=== PATIENT | female | born 1960 | race Caucasian/White ===

== ENCOUNTER 2021-03-23 08:21 | Inpatient (IN) ==
[2021-03-23] MEDS ORDERED: *HR* Heparin 10,000 UNIT/10 ML VIAL IV PRN (11:43)
[2021-03-23] MEDS ORDERED: 0.9 % Sodium Chloride 250 ML IVC PRN (11:43)
[2021-03-23] MEDS ORDERED: 0.9 % Sodium Chloride 1,000 ML PRIME SCH (11:45)
[2021-03-23] MEDS ORDERED: 0.9 % Sodium Chloride 1,000 ML ONE (11:48)
[2021-03-23 15:09] LABS: Hepatitis B Surface Antibody 154.11 mIU/mL
[2021-03-23 15:20] LABS: Hepatitis B Surface Antigen Nonreactive (Nonreactive)
[2021-03-23] MEDS ORDERED: Perflutren Lipid Microsphere 1.3 ML in 0.9 % Sodium Chloride 8.7 ML IVP PRN (15:53)
[2021-03-23] MEDS ORDERED: Cyanocobalamin (B-12) 1,000 MCG/ML VIAL SQ SCH (16:30)
[2021-03-23] MEDS: carvediloL 25 MG TABLET PO SCH (17:28)
[2021-03-23] MEDS: *HR* HYDROcodone/Acet 10/325 mg TABLET PO PRN (17:29)
[2021-03-23 17:52] LABS: Troponin I 0.03 ng/mL (< 0.04)
[2021-03-23] MEDS ORDERED: Aspirin Enteric Coated 81 MG Tablet PO SCH (18:00)
[2021-03-23 18:05] LABS: Thyroid Stimulating Hormone 0.167 mcIU/mL (0.340-5.600)
[2021-03-23] MEDS ORDERED: traZODone 50 MG TABLET PO SCH (21:00)
[2021-03-24 03:50] LABS: Basophils % 0.4 %; Eosinophils # 0.1 K/mcL (0.0-0.6); Eosinophils % 1.7 %; Hematocrit 31.4 % (35.3-44.9); Hemoglobin 10.3 g/dL (11.5-15.4); Immature Granulocytes % 0.7 % (0-4); Lymphocytes % 13.5 %; Mean Corpuscular HGB Conc 32.8 g/dL (31.6-35.5); Mean Corpuscular Hemoglobin 31.7 pg (28.0-33.3); Mean Corpuscular Volume 96.6 fL (83.0-100.0); Mean Platelet Volume 9.4 fL (9.4-12.4); Monocytes # 0.5 K/mcL (0.0-1.3); Monocytes % 7.1 %; Neutrophils # 5.4 K/mcL (1.6-8.9); Platelet Count 124 K/mcL (140-400); Red Blood Count 3.25 M/mcL (3.82-4.97); Red Cell Distribution Width 14.6 % (11.5-14.5); Segmented Neutrophils % 76.6 %; White Blood Count 7.1 K/mcL (4.3-11.1)
[2021-03-24 03:59] LABS: Calcium 8.8 mg/dL (8.6-10.3); Phosphorous 3.9 mg/dL (2.7-4.5); Potassium 3.8 mEq/L (3.5-5.1)
[2021-03-24] MEDS ORDERED: *HR* Heparin 10,000 UNIT/10 ML VIAL IV PRN ×2 (07:16→10:26)
[2021-03-24] MEDS ORDERED: 0.9 % Sodium Chloride 250 ML IVC PRN (07:16)
[2021-03-24] MEDS ORDERED: 0.9 % Sodium Chloride 1,000 ML PRIME SCH ×3 (07:30→10:26)
[2021-03-24] MEDS: carvediloL 25 MG TABLET PO SCH ×2 (07:37→17:33)
[2021-03-24] MEDS ORDERED: *HR* Glimepiride 2 MG TABLET PO SCH (08:00)
[2021-03-24] MEDS ORDERED: DilTIAZem CD (24hr) 180 MG CAP.ER.24H PO SCH (09:00)
[2021-03-24] MEDS: *HR* HYDROcodone/Acet 10/325 mg TABLET PO PRN ×2 (10:21→20:00)
[2021-03-24] MEDS ORDERED: Cyanocobalamin (B-12) 1,000 MCG/ML VIAL SQ SCH (10:26)
[2021-03-24] MEDS ORDERED: Perflutren Lipid Microsphere 1.3 ML in 0.9 % Sodium Chloride 8.7 ML IVP PRN (10:26)
[2021-03-24] MEDS ORDERED: Insulin LISPRO 300 UNITS/3 ML VIAL SUBQ SCH (11:30)
[2021-03-24] MEDS ORDERED: Dextrose Gel 15 GM/37.5 ML TUBE PO PRN ×2 (20:43)
[2021-03-24] MEDS ORDERED: *HR* Dextrose 50 % in Water (Vial) 50 ML VIAL IVP PRN (20:43)
[2021-03-24] MEDS ORDERED: D5% in Water 1,000 ML IVC PRN (20:43)
[2021-03-24] MEDS: Insulin DETEMIR 100 UNIT/ML X5UNITS SUBQ SCH (21:25)
[2021-03-24] MEDS: Insulin LISPRO 300 UNITS/3 ML VIAL SUBQ SCH (21:25)
[2021-03-25] MEDS: traZODone 50 MG TABLET PO SCH ×2 (02:29→20:11)
[2021-03-25 03:00] LABS: Hematocrit 33.2 % (35.3-44.9); Hemoglobin 11.1 g/dL (11.5-15.4); Mean Corpuscular HGB Conc 33.4 g/dL (31.6-35.5); Mean Corpuscular Hemoglobin 31.9 pg (28.0-33.3); Mean Corpuscular Volume 95.4 fL (83.0-100.0); Platelet Count 144 K/mcL (140-400); Red Blood Count 3.48 M/mcL (3.82-4.97); Red Cell Distribution Width 14.6 % (11.5-14.5); White Blood Count 10.1 K/mcL (4.3-11.1)
[2021-03-25 03:18] LABS: Calcium 8.8 mg/dL (8.6-10.3)
[2021-03-25] MEDS ORDERED: 0.9 % Sodium Chloride 250 ML IVC PRN (07:59)
[2021-03-25] MEDS ORDERED: *HR* Heparin 10,000 UNIT/10 ML VIAL IV PRN (07:59)
[2021-03-25] MEDS ORDERED: Sulfamethoxazole/Trimeth DS 1 EACH TABLET PO SCH (09:00)
[2021-03-25] MEDS: *HR* HYDROcodone/Acet 10/325 mg TABLET PO PRN ×2 (09:34→20:11)
[2021-03-25] MEDS: predniSONE 5 MG TABLET PO SCH (09:35)
[2021-03-25] MEDS: Insulin LISPRO 300 UNITS/3 ML VIAL SUBQ SCH ×3 (09:36→16:01)
[2021-03-25] MEDS: carvediloL 25 MG TABLET PO SCH ×2 (12:23→16:01)
[2021-03-25] MEDS: DilTIAZem CD (24hr) 180 MG CAP.ER.24H PO SCH (13:12)
[2021-03-25] MEDS: *HR* Heparin 5,000 UNIT/ML VIAL SQ SCH ×2 (13:12→20:12)
[2021-03-25] MEDS: Insulin DETEMIR 100 UNIT/ML X5UNITS SUBQ SCH (20:19)
[2021-03-26] MEDS: *HR* HYDROcodone/Acet 10/325 mg TABLET PO PRN (03:08)
[2021-03-26] MEDS: *HR* Heparin 5,000 UNIT/ML VIAL SQ SCH ×2 (05:59→11:58)
[2021-03-26 07:22] VITALS: BP 114/72
[2021-03-26] MEDS: Insulin LISPRO 300 UNITS/3 ML VIAL SUBQ SCH ×2 (08:34→11:58)
[2021-03-26] MEDS: DilTIAZem CD (24hr) 180 MG CAP.ER.24H PO SCH (08:38)
[2021-03-26] MEDS: carvediloL 25 MG TABLET PO SCH (08:38)
[2021-03-26] MEDS: predniSONE 5 MG TABLET PO SCH (08:38)
[2021-03-26 09:11] LABS: Hematocrit 34.5 % (35.3-44.9); Hemoglobin 11.4 g/dL (11.5-15.4); Mean Corpuscular Hemoglobin 31.4 pg (28.0-33.3); Mean Platelet Volume 9.5 fL (9.4-12.4); Platelet Count 160 K/mcL (140-400); Red Blood Count 3.63 M/mcL (3.82-4.97); Red Cell Distribution Width 14.6 % (11.5-14.5); White Blood Count 7.7 K/mcL (4.3-11.1)
[2021-03-26 09:27] LABS: Calcium 8.8 mg/dL (8.6-10.3); Potassium 3.8 mEq/L (3.5-5.1)
== END 2021-03-26 14:50 | disposition home or self-care (01) | DRG 291 ==
LOC: ICNU 10:41 → SUATTDRO 10:41 → 2ANU 03-24 11:21
PROVIDERS: ADMIT Family Medicine; ATTEND Family Medicine

== ENCOUNTER 2021-09-17 18:57 | Inpatient (IN) ==
[2021-09-17] MEDS ORDERED: Melatonin 3 MG TABLET PO PRN (23:16)
[2021-09-17] MEDS ORDERED: Ondansetron 4 MG/2 ML VIAL IVP PRN (23:16)
[2021-09-17] MEDS ORDERED: Acetaminophen 325 MG TABLET PO PRN (23:16)
[2021-09-17] MEDS ORDERED: Naloxone 0.4 MG/ML INJ IVP PRN (23:16)
[2021-09-18] MEDS: *HR* HYDROcodone/Acet 5/325 mg TABLET PO PRN ×4 (02:58→19:39)
[2021-09-18] MEDS ORDERED: Acetaminophen IV 500 MG/50 ML BAG IVPB ONE (06:00)
[2021-09-18] MEDS ORDERED: D5% in Water 1,000 ML IVC PRN (06:07)
[2021-09-18] MEDS ORDERED: *HR* Dextrose 50 % in Water (Syg) 50 ML SYRINGE IVP PRN (06:07)
[2021-09-18] MEDS ORDERED: Dextrose Gel 15 GM/37.5 ML TUBE PO PRN ×2 (06:07)
[2021-09-18 06:11] LABS: Basophils % 0.5 %; Eosinophils # 0.1 K/mcL (0.0-0.6); Eosinophils % 1.1 %; Hematocrit 25.7 % (35.3-44.9); Hemoglobin 7.8 g/dL (11.5-15.4); Immature Granulocytes % 0.3 % (0-4); Lymphocytes # 0.6 K/mcL (0.6-4.6); Lymphocytes % 8.4 %; Mean Corpuscular HGB Conc 30.4 g/dL (31.6-35.5); Mean Corpuscular Hemoglobin 32.2 pg (28.0-33.3); Mean Corpuscular Volume 106.2 fL (83.0-100.0); Mean Platelet Volume 9.9 fL (9.4-12.4); Monocytes # 0.6 K/mcL (0.0-1.3); Monocytes % 7.5 %; Neutrophils # 6.3 K/mcL (1.6-8.9); Platelet Count 112 K/mcL (140-400); Red Blood Count 2.42 M/mcL (3.82-4.97); Segmented Neutrophils % 82.2 %; White Blood Count 7.6 K/mcL (4.3-11.1)
[2021-09-18 06:39] LABS: Albumin 3.2 g/dL (3.5-5.7); Albumin/Globulin Ratio 1.3 (1.1-2.2); Bilirubin,Total 0.5 mg/dL (0.3-1.0); Calcium 8.2 mg/dL (8.6-10.3); Globulin 2.5 g/dL (2.4-3.5); Magnesium 1.9 mg/dL (1.6-2.6); Phosphorous 3.8 mg/dL (2.7-4.5); Potassium 4.9 mEq/L (3.5-5.1); Total Protein 5.7 g/dL (6.4-8.9); Troponin I 0.03 ng/mL (< 0.04)
[2021-09-18] MEDS ORDERED: 0.9 % Sodium Chloride 250 ML IVC PRN (07:54)
[2021-09-18] MEDS ORDERED: 0.9 % Sodium Chloride 1,000 ML PRIME SCH (08:00)
[2021-09-18] MEDS ORDERED: *HR* LORazepam 0.5 MG TABLET PO ONE (10:05)
[2021-09-18 11:26] LABS: INR 1.1; Prothrombin Time 11.7 Seconds (9.4-12.1)
[2021-09-18] MEDS: Insulin LISPRO 300 UNITS/3 ML VIAL SUBQ SCH ×3 (13:26→19:40)
[2021-09-18] MEDS: polyethylene glycoL 3350 17 GM POWD.PACK PO SCH (17:34)
[2021-09-18] MEDS: cefTRIAXone 1,000 MG in Water for inj. (sterile) 10 ML IVP SCH (17:36)
[2021-09-18] MEDS: *HR* Heparin 5,000 UNIT/ML VIAL SQ SCH (17:37)
[2021-09-19] MEDS: Insulin LISPRO 300 UNITS/3 ML VIAL SUBQ SCH ×7 (00:57→20:21)
[2021-09-19] MEDS: *HR* HYDROcodone/Acet 5/325 mg TABLET PO PRN ×5 (01:01→21:32)
[2021-09-19 05:25] LABS: Calcium 8.3 mg/dL (8.6-10.3); Potassium 4.2 mEq/L (3.5-5.1)
[2021-09-19] MEDS: *HR* Heparin 5,000 UNIT/ML VIAL SQ SCH ×2 (06:17→17:04)
[2021-09-19] MEDS ORDERED: carvediloL 6.25 MG TABLET PO SCH (08:00)
[2021-09-19] MEDS: Insulin DETEMIR 100 UNIT/ML X5UNITS SUBQ SCH (08:31)
[2021-09-19] MEDS: polyethylene glycoL 3350 17 GM POWD.PACK PO SCH (08:33)
[2021-09-19] MEDS: Aspirin Enteric Coated 81 MG Tablet PO SCH (08:33)
[2021-09-19] MEDS: cefTRIAXone 1,000 MG in Water for inj. (sterile) 10 ML IVP SCH (08:34)
[2021-09-19] MEDS ORDERED: 0.9 % Sodium Chloride 250 ML IVC PRN (09:22)
[2021-09-19] MEDS ORDERED: 0.9 % Sodium Chloride 1,000 ML PRIME SCH (09:30)
[2021-09-19 12:38] LABS: Iron 29 mcg/dL (50-170)
[2021-09-19] MEDS: carvediloL 6.25 MG TABLET PO SCH (17:04)
[2021-09-19] MEDS: Melatonin 3 MG TABLET PO SCH (20:20)
[2021-09-19] MEDS: traZODone 50 MG TABLET PO SCH (20:20)
[2021-09-19] MEDS ORDERED: Melatonin 3 MG TABLET PO SCH (21:00)
[2021-09-20] MEDS: *HR* Heparin 5,000 UNIT/ML VIAL SQ SCH ×2 (05:40→16:38)
[2021-09-20] MEDS: *HR* HYDROcodone/Acet 5/325 mg TABLET PO PRN ×5 (05:41→23:23)
[2021-09-20] MEDS: Insulin LISPRO 300 UNITS/3 ML VIAL SUBQ SCH ×4 (08:00→21:27)
[2021-09-20] MEDS: polyethylene glycoL 3350 17 GM POWD.PACK PO SCH (09:47)
[2021-09-20] MEDS: Aspirin Enteric Coated 81 MG Tablet PO SCH (09:47)
[2021-09-20] MEDS: cefTRIAXone 1,000 MG in Water for inj. (sterile) 10 ML IVP SCH (09:48)
[2021-09-20] MEDS: carvediloL 6.25 MG TABLET PO SCH ×2 (09:52→16:39)
[2021-09-20] MEDS: Insulin DETEMIR 100 UNIT/ML X5UNITS SUBQ SCH (09:52)
[2021-09-20 11:21] LABS: Calcium 8.5 mg/dL (8.6-10.3); Potassium 4.4 mEq/L (3.5-5.1)
[2021-09-20] MEDS: Melatonin 3 MG TABLET PO SCH (21:23)
[2021-09-20] MEDS: traZODone 50 MG TABLET PO SCH (21:25)
[2021-09-21] MEDS: *HR* Heparin 5,000 UNIT/ML VIAL SQ SCH (05:15)
[2021-09-21] MEDS: *HR* HYDROcodone/Acet 5/325 mg TABLET PO PRN ×2 (05:16→12:16)
[2021-09-21 06:16] LABS: Calcium 8.2 mg/dL (8.6-10.3); Potassium 4.8 mEq/L (3.5-5.1)
[2021-09-21] MEDS ORDERED: 0.9 % Sodium Chloride 250 ML IVC PRN (07:31)
[2021-09-21 07:47] VITALS: PULSE 87; O2SAT 95
[2021-09-21] MEDS: Aspirin Enteric Coated 81 MG Tablet PO SCH (08:57)
[2021-09-21] MEDS: cefTRIAXone 1,000 MG in Water for inj. (sterile) 10 ML IVP SCH (08:58)
[2021-09-21] MEDS: polyethylene glycoL 3350 17 GM POWD.PACK PO SCH (08:58)
[2021-09-21] MEDS: carvediloL 6.25 MG TABLET PO SCH (08:59)
[2021-09-21] MEDS: Insulin LISPRO 300 UNITS/3 ML VIAL SUBQ SCH ×2 (08:59→12:16)
[2021-09-21] MEDS ORDERED: Furosemide 40 MG TABLET PO SCH (09:00)
[2021-09-21] MEDS: Insulin DETEMIR 100 UNIT/ML X5UNITS SUBQ SCH (09:01)
[2021-09-21 15:08] VITALS: BP 149/78; TEMP 98.1
== END 2021-09-21 16:45 | disposition home health service (06) | DRG 312 ==
LOC: 2ANU → SUATTDRO 20:56
PROVIDERS: ADMIT Hospitalist; ATTEND Internal Medicine

== ENCOUNTER 2021-09-23 14:36 | Inpatient (IN) ==
[2021-09-23] MEDS ORDERED: Naloxone 0.4 MG/ML INJ IVP PRN (16:57)
[2021-09-23] MEDS ORDERED: Vancomycin 1,750 MG in 0.9 % Sodium Chloride 250 ML IVPB SCH (17:00)
[2021-09-23] MEDS ORDERED: levoFLOXacin 750 MG/150 ML 750 MG/150 ML BAG IVPB SCH (17:00)
[2021-09-23] MEDS ORDERED: Ondansetron 4 MG/2 ML VIAL ONE (17:49)
[2021-09-23] MEDS ORDERED: Vancomycin 2,000 MG/520 ML IV.SOLN IVPB ONE (18:48)
[2021-09-23] MEDS ORDERED: levoFLOXacin 750 MG/150 ML 750 MG/150 ML BAG IVPB ONE (19:00)
[2021-09-24] MEDS: Ondansetron 4 MG/2 ML VIAL IVP PRN ×2 (01:37→10:19)
[2021-09-24 08:02] LABS: Calcium 8.3 mg/dL (8.6-10.3); Potassium 4.7 mEq/L (3.5-5.1)
[2021-09-24] MEDS ORDERED: 0.9 % Sodium Chloride 250 ML IVC PRN (09:42)
[2021-09-24] MEDS ORDERED: 0.9 % Sodium Chloride 1,000 ML PRIME SCH (09:45)
[2021-09-24] MEDS ORDERED: *HR* Promethazine 25 MG/ML VIAL IM ONE (10:14)
[2021-09-24] MEDS ORDERED: Acetaminophen 325 MG TABLET PO PRN (10:33)
[2021-09-24] MEDS ORDERED: Dextrose Gel 15 GM/37.5 ML TUBE PO PRN ×2 (10:34)
[2021-09-24] MEDS ORDERED: D5% in Water 1,000 ML IVC PRN (10:34)
[2021-09-24] MEDS ORDERED: *HR* Dextrose 50 % in Water (Syg) 50 ML SYRINGE IVP PRN (10:34)
[2021-09-24] MEDS: *HR* HYDROcodone/Acet 5/325 mg TABLET PO PRN ×2 (12:43→18:48)
[2021-09-24] MEDS: Insulin LISPRO 300 UNITS/3 ML VIAL SUBQ SCH ×2 (12:43→16:55)
[2021-09-24] MEDS ORDERED: NON-FORMULARY MEDICATION 1 EACH EACH (Carvedilol [Carvedilol] 3.125 MG Tablet) PO SCH (21:00)
[2021-09-24] MEDS: Insulin DETEMIR 100 UNIT/ML X5UNITS SUBQ SCH (21:43)
[2021-09-25] MEDS: *HR* HYDROcodone/Acet 5/325 mg TABLET PO PRN ×4 (01:37→21:06)
[2021-09-25] MEDS ORDERED: 0.9 % Sodium Chloride 250 ML IVC PRN (07:25)
[2021-09-25] MEDS: Insulin LISPRO 300 UNITS/3 ML VIAL SUBQ SCH ×3 (08:34→17:44)
[2021-09-25] MEDS ORDERED: polyethylene glycoL 3350 17 GM POWD.PACK PO PRN (10:20)
[2021-09-25 15:28] LABS: Albumin 3.5 g/dL (3.5-5.7); Albumin/Globulin Ratio 1.1 (1.1-2.2); Bilirubin,Direct 0.1 mg/dL (0.0-0.2); Bilirubin,Indirect 0.5 mg/dL (0.0-1.0); Bilirubin,Total 0.6 mg/dL (0.3-1.0); Calcium 8.7 mg/dL (8.6-10.3); Globulin 3.1 g/dL (2.4-3.5); Potassium 3.4 mEq/L (3.5-5.1); Total Protein 6.6 g/dL (6.4-8.9)
[2021-09-25] MEDS: levoFLOXacin 500 MG/100 ML 500 MG/100 ML BAG IVPB SCH (17:41)
[2021-09-25] MEDS: Melatonin 3 MG TABLET PO SCH (20:12)
[2021-09-25] MEDS: Insulin DETEMIR 100 UNIT/ML X5UNITS SUBQ SCH (20:13)
[2021-09-25] MEDS: traZODone 50 MG TABLET PO SCH (20:13)
[2021-09-25] MEDS: calcium polycarbophiL 625 MG TABLET PO SCH (21:06)
[2021-09-25] MEDS: Ondansetron 4 MG/2 ML VIAL IVP PRN (22:35)
[2021-09-26] MEDS: *HR* HYDROcodone/Acet 5/325 mg TABLET PO PRN ×4 (03:10→21:58)
[2021-09-26 04:23] LABS: Basophils # 0.1 K/mcL (0.0-0.2); Basophils % 0.8 %; Eosinophils # 0.3 K/mcL (0.0-0.6); Eosinophils % 4.2 %; Hematocrit 22.2 % (35.3-44.9); Hemoglobin 7.3 g/dL (11.5-15.4); Immature Granulocytes % 0.8 % (0-4); Lymphocytes # 0.9 K/mcL (0.6-4.6); Lymphocytes % 11.7 %; Mean Corpuscular HGB Conc 32.9 g/dL (31.6-35.5); Mean Corpuscular Hemoglobin 33.5 pg (28.0-33.3); Mean Corpuscular Volume 101.8 fL (83.0-100.0); Mean Platelet Volume 9.1 fL (9.4-12.4); Monocytes # 0.7 K/mcL (0.0-1.3); Monocytes % 9.2 %; Neutrophils # 5.8 K/mcL (1.6-8.9); Platelet Count 185 K/mcL (140-400); Red Blood Count 2.18 M/mcL (3.82-4.97); Red Cell Distribution Width 13.7 % (11.5-14.5); Segmented Neutrophils % 73.3 %; White Blood Count 7.9 K/mcL (4.3-11.1)
[2021-09-26 05:04] LABS: Albumin 3.2 g/dL (3.5-5.7); Albumin/Globulin Ratio 1.2 (1.1-2.2); Bilirubin,Direct 0.1 mg/dL (0.0-0.2); Bilirubin,Indirect 0.4 mg/dL (0.0-1.0); Bilirubin,Total 0.5 mg/dL (0.3-1.0); Calcium 8.7 mg/dL (8.6-10.3); Globulin 2.6 g/dL (2.4-3.5); Potassium 4.1 mEq/L (3.5-5.1); Total Protein 5.8 g/dL (6.4-8.9)
[2021-09-26] MEDS: Aspirin Enteric Coated 81 MG Tablet PO SCH (07:49)
[2021-09-26] MEDS: calcium polycarbophiL 625 MG TABLET PO SCH ×2 (07:49→21:59)
[2021-09-26] MEDS: Insulin LISPRO 300 UNITS/3 ML VIAL SUBQ SCH ×3 (08:04→16:21)
[2021-09-26] MEDS: traZODone 50 MG TABLET PO SCH (21:58)
[2021-09-26] MEDS: Melatonin 3 MG TABLET PO SCH (21:59)
[2021-09-26] MEDS: Insulin DETEMIR 100 UNIT/ML X5UNITS SUBQ SCH (22:00)
[2021-09-27] MEDS: *HR* LORazepam 1 MG TABLET PO PRN (03:37)
[2021-09-27] MEDS: *HR* HYDROcodone/Acet 5/325 mg TABLET PO PRN ×4 (03:39→23:16)
[2021-09-27 04:16] LABS: Hematocrit 22.8 % (35.3-44.9); Hemoglobin 7.4 g/dL (11.5-15.4)
[2021-09-27 04:26] LABS: Iron 32 mcg/dL (50-170)
[2021-09-27 04:27] LABS: Calcium 8.8 mg/dL (8.6-10.3); Magnesium 1.9 mg/dL (1.6-2.6); Phosphorous 6.3 mg/dL (2.7-4.5); Potassium 4.2 mEq/L (3.5-5.1)
[2021-09-27 06:22] LABS: % Iron Saturation 17 % (15-50); Transferrin 135 mg/dL (203-362)
[2021-09-27] MEDS: Insulin LISPRO 300 UNITS/3 ML VIAL SUBQ SCH ×3 (08:57→16:06)
[2021-09-27] MEDS: Aspirin Enteric Coated 81 MG Tablet PO SCH (08:58)
[2021-09-27] MEDS: calcium polycarbophiL 625 MG TABLET PO SCH ×2 (08:58→20:34)
[2021-09-27] MEDS: carvediloL 6.25 MG TABLET PO SCH ×2 (08:58→16:10)
[2021-09-27] MEDS: Insulin DETEMIR 100 UNIT/ML X5UNITS SUBQ SCH ×2 (09:02→20:34)
[2021-09-27] MEDS: levoFLOXacin 500 MG/100 ML 500 MG/100 ML BAG IVPB SCH (16:11)
[2021-09-27] MEDS: Melatonin 3 MG TABLET PO SCH (20:32)
[2021-09-27] MEDS: traZODone 50 MG TABLET PO SCH (20:33)
[2021-09-28 05:01] LABS: Hematocrit 19.7 % (35.3-44.9); Hemoglobin 6.4 g/dL (11.5-15.4)
[2021-09-28 05:04] LABS: Calcium 8.4 mg/dL (8.6-10.3); Magnesium 1.8 mg/dL (1.6-2.6); Phosphorous 7.5 mg/dL (2.7-4.5); Potassium 4.6 mEq/L (3.5-5.1)
[2021-09-28] MEDS ORDERED: 0.9 % Sodium Chloride 250 ML IVC SCH (07:30)
[2021-09-28] MEDS ORDERED: *HR* Heparin 10,000 UNIT/10 ML VIAL IV PRN (08:28)
[2021-09-28] MEDS ORDERED: 0.9 % Sodium Chloride 250 ML IVC PRN (08:28)
[2021-09-28] MEDS ORDERED: 0.9 % Sodium Chloride 1,000 ML PRIME SCH (08:30)
[2021-09-28] MEDS: carvediloL 6.25 MG TABLET PO SCH ×2 (08:55→17:01)
[2021-09-28] MEDS: Insulin DETEMIR 100 UNIT/ML X5UNITS SUBQ SCH ×2 (08:56→20:42)
[2021-09-28] MEDS: Insulin LISPRO 300 UNITS/3 ML VIAL SUBQ SCH ×3 (08:56→17:01)
[2021-09-28] MEDS: calcium polycarbophiL 625 MG TABLET PO SCH ×2 (08:56→20:42)
[2021-09-28] MEDS: Aspirin Enteric Coated 81 MG Tablet PO SCH (09:14)
[2021-09-28] MEDS: *HR* HYDROcodone/Acet 5/325 mg TABLET PO PRN (11:01)
[2021-09-28 18:19] LABS: Hematocrit 24.8 % (35.3-44.9)
[2021-09-28 18:22] LABS: Hemoglobin 8.5 g/dL (11.5-15.4)
[2021-09-28] MEDS: Melatonin 3 MG TABLET PO SCH (20:41)
[2021-09-28] MEDS: traZODone 50 MG TABLET PO SCH (20:42)
[2021-09-28] MEDS: Ondansetron 4 MG/2 ML VIAL IVP PRN (20:49)
[2021-09-29] MEDS: *HR* HYDROcodone/Acet 5/325 mg TABLET PO PRN ×4 (00:41→23:24)
[2021-09-29 06:34] LABS: Hematocrit 22.6 % (35.3-44.9); Hemoglobin 7.4 g/dL (11.5-15.4)
[2021-09-29 06:51] LABS: Calcium 8.3 mg/dL (8.6-10.3); Magnesium 1.8 mg/dL (1.6-2.6); Phosphorous 4.2 mg/dL (2.7-4.5); Potassium 3.7 mEq/L (3.5-5.1)
[2021-09-29] MEDS: carvediloL 6.25 MG TABLET PO SCH ×2 (07:30→16:58)
[2021-09-29] MEDS: calcium polycarbophiL 625 MG TABLET PO SCH ×2 (07:30→21:18)
[2021-09-29] MEDS: Aspirin Enteric Coated 81 MG Tablet PO SCH (07:30)
[2021-09-29] MEDS: Insulin LISPRO 300 UNITS/3 ML VIAL SUBQ SCH ×3 (07:35→17:00)
[2021-09-29] MEDS: Insulin DETEMIR 100 UNIT/ML X5UNITS SUBQ SCH ×2 (07:36→21:18)
[2021-09-29] MEDS: levoFLOXacin 500 MG/100 ML 500 MG/100 ML BAG IVPB SCH (17:01)
[2021-09-29] MEDS: Melatonin 3 MG TABLET PO SCH (21:18)
[2021-09-29] MEDS: traZODone 50 MG TABLET PO SCH (21:18)
[2021-09-30] MEDS: Insulin LISPRO 300 UNITS/3 ML VIAL SUBQ SCH ×3 (07:58→17:30)
[2021-09-30] MEDS: Aspirin Enteric Coated 81 MG Tablet PO SCH (08:10)
[2021-09-30] MEDS: *HR* HYDROcodone/Acet 5/325 mg TABLET PO PRN ×3 (08:10→23:03)
[2021-09-30] MEDS: carvediloL 6.25 MG TABLET PO SCH ×2 (08:11→17:15)
[2021-09-30] MEDS: Insulin DETEMIR 100 UNIT/ML X5UNITS SUBQ SCH ×2 (08:11→21:39)
[2021-09-30] MEDS: calcium polycarbophiL 625 MG TABLET PO SCH ×2 (08:11→20:57)
[2021-09-30] MEDS ORDERED: *HR* Heparin 10,000 UNIT/10 ML VIAL IV PRN (08:21)
[2021-09-30] MEDS ORDERED: 0.9 % Sodium Chloride 250 ML IVC PRN (08:21)
[2021-09-30] MEDS ORDERED: 0.9 % Sodium Chloride 1,000 ML PRIME SCH (08:30)
[2021-09-30 09:44] LABS: Hematocrit 21.6 % (35.3-44.9); Hemoglobin 6.9 g/dL (11.5-15.4)
[2021-09-30 10:01] LABS: Calcium 8.4 mg/dL (8.6-10.3); Magnesium 1.7 mg/dL (1.6-2.6); Phosphorous 5.9 mg/dL (2.7-4.5); Potassium 4.6 mEq/L (3.5-5.1)
[2021-09-30 15:47] LABS: Hematocrit 26.2 % (35.3-44.9)
[2021-09-30 16:07] LABS: Hemoglobin 8.5 g/dL (11.5-15.4)
[2021-09-30] MEDS: Melatonin 3 MG TABLET PO SCH (20:57)
[2021-09-30] MEDS: traZODone 50 MG TABLET PO SCH (20:57)
[2021-10-01 06:30] LABS: Basophils # 0.1 K/mcL (0.0-0.2); Basophils % 0.8 %; Eosinophils # 0.3 K/mcL (0.0-0.6); Eosinophils % 4.6 %; Hematocrit 22.9 % (35.3-44.9); Hemoglobin 7.5 g/dL (11.5-15.4); Immature Granulocytes % 0.6 % (0-4); Lymphocytes # 0.7 K/mcL (0.6-4.6); Lymphocytes % 10.1 %; Mean Corpuscular HGB Conc 32.8 g/dL (31.6-35.5); Mean Corpuscular Hemoglobin 31.8 pg (28.0-33.3); Mean Platelet Volume 8.9 fL (9.4-12.4); Monocytes # 0.8 K/mcL (0.0-1.3); Monocytes % 10.5 %; Neutrophils # 5.3 K/mcL (1.6-8.9); Platelet Count 124 K/mcL (140-400); Red Blood Count 2.36 M/mcL (3.82-4.97); Red Cell Distribution Width 14.6 % (11.5-14.5); Segmented Neutrophils % 73.4 %; White Blood Count 7.2 K/mcL (4.3-11.1)
[2021-10-01 06:55] LABS: Calcium 8.4 mg/dL (8.6-10.3); Magnesium 1.8 mg/dL (1.6-2.6); Phosphorous 4.9 mg/dL (2.7-4.5); Potassium 4.2 mEq/L (3.5-5.1)
[2021-10-01] MEDS: Insulin DETEMIR 100 UNIT/ML X5UNITS SUBQ SCH ×2 (09:26→21:51)
[2021-10-01] MEDS: carvediloL 6.25 MG TABLET PO SCH ×2 (09:27→17:23)
[2021-10-01] MEDS: Sennosides/Docusate Sodium TABLET PO SCH ×2 (09:27→21:50)
[2021-10-01] MEDS: Aspirin Enteric Coated 81 MG Tablet PO SCH (09:27)
[2021-10-01] MEDS: *HR* HYDROcodone/Acet 5/325 mg TABLET PO PRN ×2 (09:27→15:28)
[2021-10-01] MEDS: calcium polycarbophiL 625 MG TABLET PO SCH ×2 (09:27→21:51)
[2021-10-01] MEDS: Insulin LISPRO 300 UNITS/3 ML VIAL SUBQ SCH ×3 (09:28→17:23)
[2021-10-01] MEDS: Melatonin 3 MG TABLET PO SCH (21:51)
[2021-10-01] MEDS: traZODone 50 MG TABLET PO SCH (21:51)
[2021-10-02 05:14] LABS: Hematocrit 23.1 % (35.3-44.9); Hemoglobin 7.5 g/dL (11.5-15.4); Mean Corpuscular HGB Conc 32.5 g/dL (31.6-35.5); Mean Corpuscular Hemoglobin 31.4 pg (28.0-33.3); Mean Corpuscular Volume 96.7 fL (83.0-100.0); Mean Platelet Volume 9.1 fL (9.4-12.4); Platelet Count 134 K/mcL (140-400); Red Blood Count 2.39 M/mcL (3.82-4.97); Red Cell Distribution Width 13.9 % (11.5-14.5); White Blood Count 6.8 K/mcL (4.3-11.1)
[2021-10-02 05:20] LABS: Calcium 8.7 mg/dL (8.6-10.3); Magnesium 1.9 mg/dL (1.6-2.6); Phosphorous 5.2 mg/dL (2.7-4.5); Potassium 4.2 mEq/L (3.5-5.1)
[2021-10-02] MEDS: carvediloL 6.25 MG TABLET PO SCH ×2 (07:50→16:25)
[2021-10-02] MEDS: calcium polycarbophiL 625 MG TABLET PO SCH ×2 (07:50→21:50)
[2021-10-02] MEDS: Insulin LISPRO 300 UNITS/3 ML VIAL SUBQ SCH ×3 (07:51→16:29)
[2021-10-02] MEDS: Sennosides/Docusate Sodium TABLET PO SCH ×2 (07:51→21:49)
[2021-10-02] MEDS: Aspirin Enteric Coated 81 MG Tablet PO SCH (07:51)
[2021-10-02] MEDS: *HR* HYDROcodone/Acet 5/325 mg TABLET PO PRN ×3 (07:51→22:43)
[2021-10-02] MEDS ORDERED: 0.9 % Sodium Chloride 250 ML IVC PRN (08:21)
[2021-10-02] MEDS ORDERED: Albumin 25% 25gram/100mL 25 GM/100 ML IV.SOLN IVPB ONE (10:11)
[2021-10-02] MEDS: Insulin DETEMIR 100 UNIT/ML X5UNITS SUBQ SCH (21:48)
[2021-10-02] MEDS: traZODone 50 MG TABLET PO SCH (21:50)
[2021-10-02] MEDS: Melatonin 3 MG TABLET PO SCH (21:50)
[2021-10-02] MEDS: *HR* LORazepam 1 MG TABLET PO PRN (21:50)
[2021-10-03 03:57] LABS: Hematocrit 22.9 % (35.3-44.9); Hemoglobin 7.5 g/dL (11.5-15.4)
[2021-10-03 04:04] LABS: Calcium 8.4 mg/dL (8.6-10.3); Magnesium 1.8 mg/dL (1.6-2.6); Phosphorous 3.5 mg/dL (2.7-4.5); Potassium 4.2 mEq/L (3.5-5.1)
[2021-10-03] MEDS: Insulin LISPRO 300 UNITS/3 ML VIAL SUBQ SCH ×3 (07:15→16:35)
[2021-10-03] MEDS: Aspirin Enteric Coated 81 MG Tablet PO SCH (08:32)
[2021-10-03] MEDS: calcium polycarbophiL 625 MG TABLET PO SCH ×2 (08:32→20:24)
[2021-10-03] MEDS: Sennosides/Docusate Sodium TABLET PO SCH ×2 (08:32→20:25)
[2021-10-03] MEDS: carvediloL 6.25 MG TABLET PO SCH ×2 (08:33→16:33)
[2021-10-03] MEDS: *HR* HYDROcodone/Acet 5/325 mg TABLET PO PRN ×3 (08:38→21:54)
[2021-10-03] MEDS: Melatonin 3 MG TABLET PO SCH (20:24)
[2021-10-03] MEDS: *HR* LORazepam 1 MG TABLET PO PRN (20:24)
[2021-10-03] MEDS: traZODone 50 MG TABLET PO SCH (20:25)
[2021-10-03] MEDS: Insulin DETEMIR 100 UNIT/ML X5UNITS SUBQ SCH (20:25)
[2021-10-04] MEDS: *HR* HYDROcodone/Acet 5/325 mg TABLET PO PRN ×3 (06:13→20:28)
[2021-10-04] MEDS: Insulin LISPRO 300 UNITS/3 ML VIAL SUBQ SCH ×3 (07:52→16:18)
[2021-10-04] MEDS: calcium polycarbophiL 625 MG TABLET PO SCH ×2 (07:54→20:28)
[2021-10-04] MEDS: Aspirin Enteric Coated 81 MG Tablet PO SCH (07:54)
[2021-10-04] MEDS: carvediloL 6.25 MG TABLET PO SCH ×2 (07:54→16:18)
[2021-10-04] MEDS: Sennosides/Docusate Sodium TABLET PO SCH ×2 (07:55→20:28)
[2021-10-04 08:03] LABS: Hematocrit 23.4 % (35.3-44.9); Hemoglobin 7.8 g/dL (11.5-15.4)
[2021-10-04 08:19] LABS: Calcium 8.8 mg/dL (8.6-10.3); Magnesium 1.7 mg/dL (1.6-2.6); Phosphorous 3.8 mg/dL (2.7-4.5); Potassium 4.5 mEq/L (3.5-5.1)
[2021-10-04] MEDS: *HR* LORazepam 1 MG TABLET PO PRN (10:08)
[2021-10-04] MEDS: Melatonin 3 MG TABLET PO SCH (20:28)
[2021-10-04] MEDS: Nystatin POWDER 30 GM BOTTLE TP SCH (20:29)
[2021-10-04] MEDS: Insulin DETEMIR 100 UNIT/ML X5UNITS SUBQ SCH (20:29)
[2021-10-04] MEDS: traZODone 50 MG TABLET PO SCH (20:29)
[2021-10-05] MEDS: *HR* HYDROcodone/Acet 5/325 mg TABLET PO PRN ×3 (02:35→18:20)
[2021-10-05] MEDS ORDERED: 0.9 % Sodium Chloride 250 ML IVC PRN (07:32)
[2021-10-05] MEDS: Insulin LISPRO 300 UNITS/3 ML VIAL SUBQ SCH ×3 (07:32→18:19)
[2021-10-05] MEDS: Sennosides/Docusate Sodium TABLET PO SCH (08:18)
[2021-10-05] MEDS: Aspirin Enteric Coated 81 MG Tablet PO SCH (08:18)
[2021-10-05] MEDS: calcium polycarbophiL 625 MG TABLET PO SCH (08:18)
[2021-10-05] MEDS: carvediloL 6.25 MG TABLET PO SCH ×2 (08:19→18:19)
[2021-10-05] MEDS: Nystatin POWDER 30 GM BOTTLE TP SCH (08:19)
[2021-10-05] MEDS: *HR* LORazepam 1 MG TABLET PO PRN (08:20)
[2021-10-05 08:48] LABS: Calcium 8.9 mg/dL (8.6-10.3); Magnesium 1.8 mg/dL (1.6-2.6); Phosphorous 4.6 mg/dL (2.7-4.5); Potassium 4.8 mEq/L (3.5-5.1)
[2021-10-05 08:49] LABS: Hematocrit 22.1 % (35.3-44.9); Hemoglobin 7.3 g/dL (11.5-15.4)
[2021-10-05 18:26] VITALS: BP 127/69; PULSE 86; O2SAT 99
[2021-10-05 22:51] VITALS: TEMP 98.1
== END 2021-10-05 18:30 | disposition home health service (06) | DRG 193 ==
LOC: 2ANU → SUATTDRO 16:25
PROVIDERS: ADMIT Internal Medicine; ATTEND Internal Medicine

== ENCOUNTER 2021-12-26 03:35 | Observation (INO) ==
[2021-12-26] MEDS ORDERED: Naloxone 0.4 MG/ML INJ IVP PRN (08:30)
[2021-12-26] MEDS ORDERED: Ondansetron 4 MG/2 ML VIAL IVP PRN (08:30)
[2021-12-26] MEDS ORDERED: SODIUM CHLORIDE 0.9% IVPB ONE (08:30)
[2021-12-26] MEDS ORDERED: DESMOPRESSIN ACETATE IVPB ONE (08:30)
[2021-12-26] MEDS ORDERED: Oxymetazoline Nasal SPRAY BOTTLE 15ML NS SCH (09:00)
[2021-12-26] MEDS: Saline Nasal Spray 44 ML BOTTLE NS PRN ×2 (10:46→18:42)
[2021-12-26] MEDS: ALPRAZolam 0.5 MG TABLET PO PRN ×2 (10:55→20:12)
[2021-12-26] MEDS: Furosemide 40 MG TABLET PO SCH ×2 (11:12→17:55)
[2021-12-26] MEDS: *HR* HYDROcodone/Acet 10/325 mg TABLET PO PRN ×2 (11:13→20:12)
[2021-12-26] MEDS: Calcium Acetate 667 MG CAPSULE PO SCH ×2 (11:13→17:54)
[2021-12-26] MEDS: traZODone 50 MG TABLET PO SCH (20:11)
[2021-12-26] MEDS: calcium polycarbophiL 625 MG TABLET PO SCH (20:12)
[2021-12-26] MEDS: Melatonin 3 MG TABLET PO SCH (20:13)
[2021-12-27 01:42] LABS: Basophils % 0.5 %; Eosinophils # 0.1 K/mcL (0.0-0.6); Eosinophils % 1.4 %; Hematocrit 24.6 % (35.3-44.9); Hemoglobin 7.8 g/dL (11.5-15.4); Immature Granulocytes % 0.4 % (0-4); Lymphocytes # 0.6 K/mcL (0.6-4.6); Lymphocytes % 6.5 %; Mean Corpuscular HGB Conc 31.7 g/dL (31.6-35.5); Mean Corpuscular Hemoglobin 32.1 pg (28.0-33.3); Mean Corpuscular Volume 101.2 fL (83.0-100.0); Mean Platelet Volume 9.7 fL (9.4-12.4); Monocytes # 0.6 K/mcL (0.0-1.3); Neutrophils # 7.1 K/mcL (1.6-8.9); Platelet Count 124 K/mcL (140-400); Red Blood Count 2.43 M/mcL (3.82-4.97); Red Cell Distribution Width 15.8 % (11.5-14.5); Segmented Neutrophils % 84.2 %; White Blood Count 8.4 K/mcL (4.3-11.1)
[2021-12-27 01:53] LABS: INR 1.6; Prothrombin Time 17.5 Seconds (9.4-12.1)
[2021-12-27 01:57] LABS: Calcium 8.8 mg/dL (8.6-10.3); Potassium 4.7 mEq/L (3.5-5.1)
[2021-12-27] MEDS: *HR* HYDROcodone/Acet 10/325 mg TABLET PO PRN (03:41)
[2021-12-27] MEDS: Furosemide 40 MG TABLET PO SCH ×3 (05:55→17:37)
[2021-12-27] MEDS: Sennosides/Docusate Sodium TABLET PO SCH (08:10)
[2021-12-27] MEDS: calcium polycarbophiL 625 MG TABLET PO SCH ×2 (08:10→20:45)
[2021-12-27] MEDS: Calcium Acetate 667 MG CAPSULE PO SCH ×3 (08:11→17:36)
[2021-12-27] MEDS: Aspirin Enteric Coated 81 MG Tablet PO SCH (08:11)
[2021-12-27] MEDS ORDERED: *HR* Dextrose 50 % in Water (Syg) 50 ML SYRINGE IVP PRN (12:42)
[2021-12-27] MEDS ORDERED: D5% in Water 1,000 ML IVC PRN (12:42)
[2021-12-27] MEDS ORDERED: Dextrose 4 GM Chewable Tablets PO PRN ×2 (12:42)
[2021-12-27] MEDS: Insulin LISPRO 300 UNITS/3 ML VIAL SUBQ SCH ×2 (16:41→20:49)
[2021-12-27] MEDS: Melatonin 3 MG TABLET PO SCH (20:44)
[2021-12-27] MEDS: traZODone 50 MG TABLET PO SCH (20:45)
[2021-12-27] MEDS: Insulin DETEMIR 100 UNIT/ML X5UNITS SUBQ SCH (21:03)
[2021-12-28] MEDS: *HR* HYDROcodone/Acet 10/325 mg TABLET PO PRN ×3 (00:25→20:09)
[2021-12-28] MEDS ORDERED: Furosemide 40 MG TABLET PO SCH ×2 (06:00→18:00)
[2021-12-28] MEDS ORDERED: 0.9 % Sodium Chloride 250 ML IVC PRN (07:51)
[2021-12-28] MEDS: Insulin LISPRO 300 UNITS/3 ML VIAL SUBQ SCH ×4 (07:55→21:30)
[2021-12-28] MEDS: Sennosides/Docusate Sodium TABLET PO SCH (07:56)
[2021-12-28] MEDS: Aspirin Enteric Coated 81 MG Tablet PO SCH (07:56)
[2021-12-28] MEDS: calcium polycarbophiL 625 MG TABLET PO SCH ×2 (07:56→22:00)
[2021-12-28] MEDS: Calcium Acetate 667 MG CAPSULE PO SCH ×3 (07:56→18:23)
[2021-12-28] MEDS ORDERED: 0.9 % Sodium Chloride 1,000 ML PRIME SCH (08:00)
[2021-12-28] MEDS: ALPRAZolam 0.5 MG TABLET PO PRN (20:09)
[2021-12-28] MEDS: traZODone 50 MG TABLET PO SCH (21:20)
[2021-12-28] MEDS: Melatonin 3 MG TABLET PO SCH (21:20)
[2021-12-28] MEDS: Insulin DETEMIR 100 UNIT/ML X5UNITS SUBQ SCH (21:30)
[2021-12-28 22:33] LABS: Basophils % 0.5 %; Eosinophils # 0.2 K/mcL (0.0-0.6); Eosinophils % 2.7 %; Hematocrit 21.2 % (35.3-44.9); Hemoglobin 6.8 g/dL (11.5-15.4); Immature Granulocytes % 0.5 % (0-4); Lymphocytes # 0.6 K/mcL (0.6-4.6); Lymphocytes % 9.5 %; Mean Corpuscular HGB Conc 32.1 g/dL (31.6-35.5); Mean Corpuscular Hemoglobin 32.2 pg (28.0-33.3); Mean Corpuscular Volume 100.5 fL (83.0-100.0); Mean Platelet Volume 9.1 fL (9.4-12.4); Monocytes # 0.5 K/mcL (0.0-1.3); Monocytes % 7.6 %; Neutrophils # 4.9 K/mcL (1.6-8.9); Platelet Count 128 K/mcL (140-400); Red Blood Count 2.11 M/mcL (3.82-4.97); Red Cell Distribution Width 15.3 % (11.5-14.5); Segmented Neutrophils % 79.2 %; White Blood Count 6.2 K/mcL (4.3-11.1)
[2021-12-28 22:49] LABS: Estimated Average Glucose 120 mg/dl; Hemoglobin A1C 5.8 %
[2021-12-28 22:52] LABS: Calcium 8.2 mg/dL (8.6-10.3); Potassium 3.7 mEq/L (3.5-5.1)
[2021-12-29] MEDS: Furosemide 40 MG TABLET PO SCH ×2 (05:31→12:56)
[2021-12-29] MEDS: calcium polycarbophiL 625 MG TABLET PO SCH (08:17)
[2021-12-29] MEDS: Aspirin Enteric Coated 81 MG Tablet PO SCH (08:17)
[2021-12-29] MEDS: Sennosides/Docusate Sodium TABLET PO SCH (08:17)
[2021-12-29] MEDS: Calcium Acetate 667 MG CAPSULE PO SCH ×2 (08:17→12:56)
[2021-12-29] MEDS: Insulin LISPRO 300 UNITS/3 ML VIAL SUBQ SCH ×2 (09:28→11:29)
[2021-12-29 10:16] VITALS: BP 95/60; PULSE 59; TEMP 97.9; O2SAT 99
[2021-12-29] MEDS: *HR* HYDROcodone/Acet 10/325 mg TABLET PO PRN (10:24)
== END 2021-12-29 15:00 | disposition home or self-care (01) ==
LOC: 3ANU
PROVIDERS: ADMIT Internal Medicine; ATTEND Internal Medicine

== ENCOUNTER 2022-08-03 15:24 | Observation (INO) ==
[2022-08-03] MEDS ORDERED: Naloxone 0.4 MG/ML INJ IVP PRN (18:51)
[2022-08-03] MEDS ORDERED: *HR* Heparin 5,000 UNIT/ML VIAL IVP PRN ×2 (19:45)
[2022-08-03] MEDS ORDERED: *HR* Heparin 5,000 UNIT/ML VIAL IVP ONE (19:45)
[2022-08-03 20:51] LABS: Hemoglobin 7.9 g/dL (11.5-15.4); Mean Corpuscular HGB Conc 30.4 g/dL (31.6-35.5); Mean Corpuscular Hemoglobin 30.7 pg (28.0-33.3); Mean Corpuscular Volume 101.2 fL (83.0-100.0); Mean Platelet Volume 9.4 fL (9.4-12.4); Platelet Count 141 K/mcL (140-400); Red Blood Count 2.57 M/mcL (3.82-4.97); Red Cell Distribution Width 14.6 % (11.5-14.5); White Blood Count 8.8 K/mcL (4.3-11.1)
[2022-08-03] MEDS ORDERED: Dextrose Gel 15 GM/37.5 ML TUBE PO PRN ×2 (21:00)
[2022-08-03] MEDS ORDERED: *HR* Dextrose 50 % in Water (Syg) 50 ML SYRINGE IVP PRN (21:00)
[2022-08-03] MEDS ORDERED: D5% in Water 1,000 ML IVC PRN (21:00)
[2022-08-03 21:05] LABS: Heparin anti-factor XA UFH 0.06 IU/mL (0.30-0.70)
[2022-08-03 21:06] LABS: INR 1.3; Prothrombin Time 14.1 Seconds (9.4-12.1)
[2022-08-03] MEDS: Heparin 25,000UNIT/250ML 1/2NS 25,000 UNIT/250 ML IV.SOLN IVC SCH (22:15)
[2022-08-03] MEDS: Insulin DETEMIR 100 UNIT/ML X5UNITS SUBQ SCH (22:15)
[2022-08-04 05:56] LABS: Basophils # 0.1 K/mcL (0.0-0.2); Basophils % 0.6 %; Eosinophils # 0.3 K/mcL (0.0-0.6); Eosinophils % 2.9 %; Hematocrit 25.7 % (35.3-44.9); Hemoglobin 7.9 g/dL (11.5-15.4); Immature Granulocytes % 0.4 % (0-4); Lymphocytes # 0.9 K/mcL (0.6-4.6); Lymphocytes % 10.2 %; Mean Corpuscular HGB Conc 30.7 g/dL (31.6-35.5); Mean Corpuscular Hemoglobin 31.2 pg (28.0-33.3); Mean Corpuscular Volume 101.6 fL (83.0-100.0); Mean Platelet Volume 9.5 fL (9.4-12.4); Monocytes # 0.5 K/mcL (0.0-1.3); Monocytes % 5.9 %; Neutrophils # 7.1 K/mcL (1.6-8.9); Platelet Count 156 K/mcL (140-400); Red Blood Count 2.53 M/mcL (3.82-4.97); Red Cell Distribution Width 14.6 % (11.5-14.5); White Blood Count 8.9 K/mcL (4.3-11.1)
[2022-08-04 06:20] LABS: Albumin 3.2 g/dL (3.5-5.7); Albumin/Globulin Ratio 1.1 (1.1-2.2); Bilirubin,Direct 0.2 mg/dL (0.0-0.2); Bilirubin,Indirect 0.3 mg/dL (0.0-1.0); Bilirubin,Total 0.5 mg/dL (0.3-1.0); Calcium 8.6 mg/dL (8.6-10.3); Magnesium 1.5 mg/dL (1.6-2.6); Phosphorous 4.2 mg/dL (2.7-4.5); Potassium 4.4 mEq/L (3.5-5.1); Total Protein 6.2 g/dL (6.4-8.9)
[2022-08-04 06:30] LABS: Thyroid Stimulating Hormone 3.263 mcIU/mL (0.340-5.600)
[2022-08-04] MEDS: Ipratropium/Albuterol Neb 3 ML IH SCH ×5 (07:51→20:32)
[2022-08-04] MEDS: Insulin LISPRO 300 UNITS/3 ML VIAL SUBQ SCH ×3 (08:44→17:47)
[2022-08-04] MEDS: Calcium Acetate 667 MG CAPSULE PO SCH ×3 (08:45→17:52)
[2022-08-04] MEDS: Aspirin Enteric Coated 81 MG Tablet PO SCH (08:45)
[2022-08-04] MEDS: Sennosides/Docusate Sodium TABLET PO SCH (08:45)
[2022-08-04] MEDS: *HR* HYDROcodone/Acet 10/325 mg TABLET PO PRN ×2 (08:52→17:58)
[2022-08-04] MEDS ORDERED: Insulin DETEMIR 100 UNIT/ML X5UNITS SUBQ SCH ×2 (09:00→21:00)
[2022-08-04] MEDS ORDERED: 0.9 % Sodium Chloride 250 ML IVC PRN (10:39)
[2022-08-04 10:41] LABS: Hepatitis B Surface Antibody 28.32 mIU/mL
[2022-08-04] MEDS ORDERED: 0.9 % Sodium Chloride 2,000 ML PRIME SCH (10:45)
[2022-08-04] MEDS ORDERED: Ethyl Chloride Spray Bottle (104 SPRAY/BOTTLE) TP PRN (10:49)
[2022-08-04 10:52] LABS: Hepatitis B Surface Antigen Nonreactive (Nonreactive)
[2022-08-04] MEDS ORDERED: Magnesium Oxide 400 MG TABLET PO ONE (11:07)
[2022-08-04] MEDS: Heparin 25,000UNIT/250ML 1/2NS 25,000 UNIT/250 ML IV.SOLN IVC SCH ×2 (13:23→21:46)
[2022-08-04 14:49] LABS: % Iron Saturation 22 % (15-50); Iron 37 mcg/dL (50-170); Transferrin 119 mg/dL (203-362)
[2022-08-04 15:03] LABS: Ferritin 876 ng/mL (10-120)
[2022-08-04 15:08] LABS: Folate 20.5 ng/mL (3.0-16.0)
[2022-08-04] MEDS ORDERED: Sulfamethoxazole/Trimeth DS 1 EACH TABLET PO SCH (15:45)
[2022-08-04] MEDS ORDERED: Warfarin perPT PO SCH ×2 (18:00)
[2022-08-04] MEDS ORDERED: *HR* Warfarin 5 MG TABLET PO SCH (18:00)
[2022-08-04] MEDS ORDERED: *HR* Warfarin 2.5 MG TABLET PO ONE (18:00)
[2022-08-04] MEDS ORDERED: rOPINIRole 0.25 MG TABLET PO SCH (21:00)
[2022-08-04] MEDS ORDERED: traZODone 50 MG TABLET PO SCH (21:00)
[2022-08-04] MEDS ORDERED: Melatonin 3 MG TABLET PO SCH (21:00)
[2022-08-04] MEDS: Insulin DETEMIR 100 UNIT/ML X5UNITS SUBQ SCH (21:10)
[2022-08-05] MEDS: Ipratropium/Albuterol Neb 3 ML IH SCH (03:51)
[2022-08-05 03:53] LABS: Basophils # 0.1 K/mcL (0.0-0.2); Basophils % 0.7 %; Eosinophils # 0.3 K/mcL (0.0-0.6); Eosinophils % 3.5 %; Hematocrit 24.8 % (35.3-44.9); Hemoglobin 7.3 g/dL (11.5-15.4); Immature Granulocytes % 0.5 % (0-4); Lymphocytes # 0.6 K/mcL (0.6-4.6); Lymphocytes % 8.3 %; Mean Corpuscular HGB Conc 29.4 g/dL (31.6-35.5); Mean Corpuscular Hemoglobin 30.3 pg (28.0-33.3); Mean Corpuscular Volume 102.9 fL (83.0-100.0); Mean Platelet Volume 9.3 fL (9.4-12.4); Monocytes # 0.6 K/mcL (0.0-1.3); Monocytes % 7.5 %; Neutrophils # 5.9 K/mcL (1.6-8.9); Platelet Count 156 K/mcL (140-400); Red Blood Count 2.41 M/mcL (3.82-4.97); Red Cell Distribution Width 14.7 % (11.5-14.5); Segmented Neutrophils % 79.5 %; White Blood Count 7.4 K/mcL (4.3-11.1)
[2022-08-05 04:05] LABS: Heparin anti-factor XA UFH 0.46 IU/mL (0.30-0.70)
[2022-08-05 04:06] LABS: INR 1.2; Prothrombin Time 13.1 Seconds (9.4-12.1)
[2022-08-05 04:14] LABS: Calcium 8.1 mg/dL (8.6-10.3); Magnesium 1.6 mg/dL (1.6-2.6); Phosphorous 3.6 mg/dL (2.7-4.5); Potassium 4.2 mEq/L (3.5-5.1)
[2022-08-05] MEDS: Insulin LISPRO 300 UNITS/3 ML VIAL SUBQ SCH ×3 (07:17→17:25)
[2022-08-05] MEDS ORDERED: Ipratropium/Albuterol Neb 3 ML IH PRN (08:13)
[2022-08-05 08:52] VITALS: O2SAT 95
[2022-08-05] MEDS: Aspirin Enteric Coated 81 MG Tablet PO SCH (08:55)
[2022-08-05] MEDS: Sennosides/Docusate Sodium TABLET PO SCH (08:55)
[2022-08-05] MEDS: Calcium Acetate 667 MG CAPSULE PO SCH ×3 (08:56→17:43)
[2022-08-05] MEDS ORDERED: *HR* Amiodarone 200 MG TABLET PO SCH (09:00)
[2022-08-05] MEDS ORDERED: 0.9 % Sodium Chloride 250 ML IVC PRN (09:11)
[2022-08-05 11:03] VITALS: PULSE 90
[2022-08-05] MEDS: *HR* HYDROcodone/Acet 10/325 mg TABLET PO PRN (12:17)
[2022-08-05 16:48] VITALS: BP 113/66; TEMP 97.9
[2022-08-05] MEDS ORDERED: *HR* Warfarin 2.5 MG TABLET PO ONE (18:00)
== END 2022-08-05 18:57 | disposition home health service (06) ==
LOC: 2ANU → SUATTDRO 17:41
PROVIDERS: ADMIT Internal Medicine; ATTEND Internal Medicine